=== PATIENT | female | born 1960 | race Caucasian/White ===

== ENCOUNTER 2016-09-06 09:27 | Emergency (ER) | payer BC, MEDICAID ==
[2016-09-06] MEDS ORDERED: DUONEB INH ONE (11:09)
[2016-09-06] MEDS ORDERED: Furosemide 40 MG/4 ML VIAL ONE (11:43)
[2016-09-06] MEDS ORDERED: KETOROLAC 30 MG/ML VIAL ONE (12:02)
== END 2016-09-06 15:31 | disposition home or self-care (01) ==
LOC: ER 09:27
DX: R07.2 Precordial pain (principal); I10 Essential (primary) hypertension; Z76.0 Encounter for issue of repeat prescription; Z79.899 Other long term (current) drug therapy
CPT/HCPCS: 36415; 71010; 80053; 82550; 83735; 84484; 85025; 85610; 85730; 93005; 94640; 96374; 96375; 99285; J1885